=== PATIENT | male | born 1955 | race Caucasian/White ===

== ENCOUNTER 2016-09-24 18:33 | Emergency (ER) | payer OTHER ==
[2016-09-24 21:04] VITALS: BP 125/84
--- NOTE | 2016-09-24 21:19 | UC ---
Lower Extremity/Ankle HPI - HPI Summary HPI Summary: 61 yo male injuried right 2nd toe when he fell mod pain with wt bearing - History of Current Complaint Chief Complaint: UCLowerExtremity Stated Complaint: TOE INJURY Time Seen by Provider: 09/24/16 21:18 Hx Obtained From: Patient Onset/Duration: Sudden Onset Severity Initially: Moderate Severity Currently: Mild Pain Intensity: 4 Pain Scale Used: 0-10 Numeric Aggravating Factor(s): Standing, Ambulation Alleviating Factor(s): Rest, Elevation Able to Bear Weight: Yes - Allergies/Home Medications Allergies/Adverse Reactions: Allergies Allergy/AdvReac Type Severity Reaction Status Date / Time Meperidine [From Demerol HCl] Allergy See Comment Verified 04/05/15 08:40 Peanuts Allergy Coughing Uncoded 04/05/15 08:40 PMH/Surg Hx/FS Hx/Imm Hx Previously Healthy: Yes Endocrine History Of: Denies: Diabetes, Thyroid Disease, Hyperthyroidism, Hypothyroidism Cardiovascular History Of: Denies: Cardiac Disorders, Hypertension Respiratory History Of: Denies: COPD, Asthma GI/ History Of: Denies: Ulcer Neurological History Of: Denies: TIA, Seizures Psychological History Of: Denies: Anxiety, Depression - Surgical History Surgical History: Yes Surgery Procedure, Year, and Place: L bicep tendon repair - Family History Known Family History: Positive: Hypertension - Social History Alcohol Use: Daily Alcohol Amount: red winw daily 5 oz Substance Use Type: None Smoking Status (MU): Never Smoked Tobacco Review of Systems Constitutional: Negative Skin: Bruising Eyes: Negative ENT: Negative Respiratory: Negative Cardiovascular: Negative Gastrointestinal: Negative Genitourinary: Negative Motor: Negative Neurovascular: Negative Musculoskeletal: Arthralgia Neurological: Negative Psychological: Anxious All Other Systems Reviewed And Are Negative: Yes Physical Exam Triage Information Reviewed: Yes Appearance: Well-Appearing, No Pain Distress, Well-Nourished Vital Signs: Initial Vital Signs Temp 98.2 F 09/24/16 20:55 Pulse 74 09/24/16 20:55 Resp 18 09/24/16 20:55 BP 125/84 09/24/16 20:55 Pulse Ox 97 09/24/16 20:55 Vital Signs Reviewed: Yes Eyes: Positive: Conjunctiva Clear ENT: Positive: Hearing grossly normal. Negative: Nasal congestion, Nasal drainage, Trismus, Muffled/hoarse voice Neck: Positive: Supple Respiratory: Positive: Lungs clear, Normal breath sounds, No respiratory distress, No accessory muscle use Cardiovascular: Positive: RRR, No Murmur Musculoskeletal: Positive: Other: - see image Neurological: Positive: Alert Psychological Exam: Normal Skin Exam: Normal Lower Extremity Course/Dx - Differential Dx/Diagnosis Provider Diagnoses: right second toe contusion Discharge - Discharge Plan Condition: Stable Disposition: HOME Patient Education Materials: Contusion in Adults (ED) Referrals: Manjinder Clifford MD [Primary Care Provider] - If Needed Additional Instructions: tylenol or advil for pain recheck if not better in a couple of weeks Images Feet (Multiple View): 1 - swollen/ecchymotic
--- NOTE | 2016-09-24 22:00 | RAD ---
INDICATION: Right second toe injury COMPARISON: None TECHNIQUE: AP, lateral, and oblique views were obtained. FINDINGS: The bony structures, joint spaces, and soft tissues are normal for age. IMPRESSION: NO ACUTE FRACTURE.
== END 2016-09-24 22:13 | disposition home or self-care (01) ==
LOC: UCEAST 18:33
DX: S90.121A Contusion of right lesser toe(s) without damage to nail, initial encounter (principal); W19.XXXA Unspecified fall, initial encounter; Y92.9 Unspecified place or not applicable
CPT/HCPCS: 99211; G0463

== ENCOUNTER 2017-12-29 13:20 | Emergency (ER) | payer OTHER ==
--- OUTSIDE RECORDS SUMMARY | 2017-12-29 13:26 | XMS REPORT ---
:1955 External Reference #:[id number] Author Organization [employer] Address [address] [place] [address] Phone [phone] Care Team Providers Name Role Phone Octavia Ramirez MD Primary Care Physician Unavailable Payers Type Date Identification Numbers Payment Provider Subscriber Commercial Policy Number: [id number] [employer] Ppo/Pos/Epo/Nap [employer] Number: [id number] [id number] PayID: [id number] [place] [address] Problems Date Description Provider Status Onset: Seasonal allergy Active Onset: Temporomandibular joint disorder Active Onset: H/O: migraine Active Onset: H/O: depression Active Onset: Spasm Active Note: muscle - left Onset: Otitis Active Onset: 10/29/2015 Nuclear senile cataract Amanda Fernandez O.D. 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 Social History Type Date Description Comments Marital Status Legal Status: Occupation Professor - [employer] Work Status Full-Time Employment ETOH Use Occasionally consumes alcohol Smoking Patient has never smoked Recreational Drug Use Denies Drug Use Daily Caffeine Consumes on average 1 cup of regular coffee per day Allergies, Adverse Reactions, Alerts Date Description Reaction Status Severity Comments 10/19/2015 Demerol active 10/19/2015 Peanut active 11/30/2017 Seasonal active 11/30/2017 Environmental active Medications Medication Date Status Form Strength Qnty SIG Indications Ordering Provider Nancie-D 12 Active Tablets ER 60-120mg Unknown Hour Allergy& 000 12HR Congestion Glucosamine Active Capsules Unknown Chondroitin 000 Complex Flonase Active Suspension 50mcg/Act as Unknown Allergy Relief 000 needed Vitamin B-12 Active Tablets 100mcg twice a Unknown 000 week Multi Vitamin Hx Tablets Unknown Daily 000 - 017 [place] 3 Hx Capsules 1000mg 1 by Unknown 000 - mouth every 017 day Medications Administered in Office Medication Date Status Form Strength Qnty SIG Indications Ordering Provider Crizal Administered Injection [place] 3 Charly Horvath Results Description No Information Procedures Date CPT Code Description Status 11/30/2016 14977 Determination Of Refractive State Completed 11/30/2016 42600 Est Patient Comprehensive Exam Completed 01/06/2016 519 Eyeglass Hay Farmer Completed 11/16/2015 601 [place] Completed 11/01/2015 603 Eyeglass/CL Case Completed 10/30/2015 601 [place] Completed 10/29/2015 06759 Determination Of Refractive State Completed 10/29/2015 36041 Est Patient Comprehensive Exam Completed 12/14/2014 519 Eyeglass Hay Farmer Completed 10/19/2011 519 Recheck Completed 09/27/2011 03286 Determination Of Refractive State Completed 09/27/2011 77033 Est Patient Comprehensive Exam Completed 07/30/2010 17656 Est Patient Comprehensive Exam Completed 06/15/2009 64246 Determination Of Refractive State Completed 07/21/2008 07211 Determination Of Refractive State Completed 07/21/2008 69633 Est Patient Comprehensive Exam Completed 01/13/2004 02887 Determination Of Refractive State Completed 01/13/2004 72309 Est Patient Comprehensive Exam Completed 10/17/2002 113 Crizal Completed Encounters Type Date Location Provider CPT E/M Dx Office Visit 09/28/2010 3:00p Bulmaro Marina MD, Marcial oByd M.D. [id number] 379.21 pc Plan of Care 11/30/2017 - Amanda Fernandez O.D.[id number] Combined forms of age-related cataract, bilateralComments:Smoking can increase the risk of developing or worsening any eye related disease, as well as affect your overall health. If you are a smoker, we strongly recommend that you quit.If you are not a smoker, we strongly recommend that you do not start. You have been diagnosed with cataracts. If you are happy with your vision as it is now, then we will see you at your next scheduled appointment. If you feel like your vision is getting worse before your scheduled appointment, please call Lydia Ramirez at .Follow up:1 Year Follow Up You can expect to have your eyes dilated at your next visit. If Dr. Fernandez orders any additional testing, it may require extra time. We recommend that you bring sunglasses, as dilation drops often make you light sensitive until they wear off. We always recommend you bring someone to drive you home if you are uncomfortable driving with your eyes dilated. If you have any questions before your next visit, feel free to call our office at .
[2017-12-29 13:28] VITALS: BP 113/72
--- NOTE | 2017-12-29 13:52 | RAD ---
Indication: Crush injury distal phalanx region RIGHT fourth finger. Pain and swelling. Potential remote fracture. Comparison: October 08, 2007 Technique: 3 views RIGHT fourth finger. REPORT AND IMPRESSION: #. Mild fusiform soft tissue swelling. No subcutaneous emphysema or conspicuous foreign body. #. Negative for acute fracture or malalignment. #. Healed intra-articular fracture at the dorsal base of the distal phalanx.
--- NOTE | 2017-12-29 14:38 | UC ---
Hand/Wrist HPI - HPI Summary HPI Summary: Shut right fourth finger in a door yesterday---continues to ooze blood - History Of Current Complaint Chief Complaint: UCUpperExtremity Stated Complaint: R FINGER INJURY Time Seen by Provider: 12/29/17 13:22 Hx Obtained From: Patient ?: No Mechanism Of Injury: crush Onset/Duration: Sudden Onset, Lasting Days - 1, Still Present Pain Intensity: 2 Pain Scale Used: 0-10 Numeric Character Of Pain: Aching, Throbbing Alleviating Factor(s): Nothing Associated Signs And Symptoms: Positive: Bruising Related History: Dominant Hand Right - Allergies/Home Medications Allergies/Adverse Reactions: Allergies Allergy/AdvReac Type Severity Reaction Status Date / Time lavender (Lavandula Allergy Unknown Verified 12/29/17 13:29 angustifolia) Reaction Details meperidine [From Demerol] Allergy See Comment Verified 12/29/17 13:29 GRASS Allergy See Comment Uncoded 12/29/17 13:29 Peanuts Allergy Coughing Uncoded 12/29/17 13:29 Home Medications: Home Medications Cyanocobalamin (Vitamin B-12) [Vitamin B-12] 1,000 mcg PO 12/29/17 [History] Fexofenadine (NF) [Nancie (NF)] 60 mg PO 12/29/17 [History] Glucosam/Chondr/Collagn/Hyalur [Glucosamine & Chondroitin Cap] 1 cap PO [History] PMH/Surg Hx/FS Hx/Imm Hx Previously Healthy: No - CLL in remission - Surgical History Surgical History: Yes Surgery Procedure, Year, and Place: L bicep tendon repair - Family History Known Family History: Positive: Hypertension - Social History Occupation: Employed Full-time Lives: With Family Alcohol Use: Occasionally Alcohol Amount: red winw daily 5 oz Substance Use Type: None Smoking Status (MU): Never Smoked Tobacco - Immunization History Hx Tetanus, Diphtheria Vaccination: Yes Vaccination Up to Date: Yes Review of Systems Constitutional: Negative Skin: Negative, Other - bleeding around nail right 4th finger Eyes: Negative ENT: Negative Respiratory: Negative Cardiovascular: Negative Gastrointestinal: Negative Genitourinary: Negative Motor: Negative Neurovascular: Negative Musculoskeletal: Arthralgia - distal right 4th finger Neurological: Negative Psychological: Negative Is Patient Immunocompromised?: No All Other Systems Reviewed And Are Negative: Yes Physical Exam Triage Information Reviewed: Yes Appearance: Well-Appearing, No Pain Distress, Well-Nourished Vital Signs: Initial Vital Signs Temp 97.9 F 12/29/17 13:24 Pulse 79 12/29/17 13:24 Resp 18 12/29/17 13:24 BP 113/72 12/29/17 13:24 Pulse Ox 100 12/29/17 13:24 Vital Signs Reviewed: Yes Eye Exam: Normal Eyes: Positive: Conjunctiva Clear ENT Exam: Normal ENT: Positive: Normal ENT inspection, Hearing grossly normal. Negative: Trismus , Muffled voice, Hoarse voice Dental Exam: Normal Neck exam: Normal Neck: Positive: Supple, Nontender Respiratory Exam: Normal Respiratory: Positive: Chest non-tender, No respiratory distress, No accessory muscle use Cardiovascular Exam: Normal Cardiovascular: Positive: RRR, Pulses Normal, Brisk Capillary Refill Musculoskeletal Exam: Other Musculoskeletal: Positive: Strength Intact, ROM Intact, Edema @ - right 4th distal finger Neurological Exam: Normal Neurological: Positive: Alert, Fatigued Psychological Exam: Normal Skin Exam: Normal Skin: Positive: Other - nail above nail bed Diagnostics - Radiology No standard instances Xray Interpretation: No Acute Changes Radiology Interpretation Completed By: ED Physician, Radiologist - Patient Name : WILLEM ARELLANO Medical Record#: [id number] Ordering Physician: Nikia Scott NP Acct.#: [id number] : 1955 Age: 62 Sex: M Location: [facility] Exam Date: 12/29/17 1326 ADM Status: REG ER Order Information: FINGER RIGHT RING Accession Number: [id number] CPT: 82138 Indication: Crush injury distal phalanx region RIGHT fourth finger. Pain and swelling. Potential remote fracture. Comparison: October 08, 2007 Technique: 3 views RIGHT fourth finger. REPORT AND IMPRESSION: #. Mild fusiform soft tissue swelling. No subcutaneous emphysema or conspicuous foreign body. #. Negative for acute fracture or malalignment. #. Healed intra-articular fracture at the dorsal base of the distal phalanx. <Electronically signed by Armin Aviles MD in OV> 12/29/17 1349 Dictated By: Armin Aviles MD Dictated Date/Time: 12/29/17 1349 Transcribed Date/Time: 12/29/17 1346 Copy to: CC:Ash Concepcion MD; Nikia Scott FILM RECORDIST ; Octavia Ramirez MD Imaging - [facility] Imaging - [facility] Imaging - [facility] [address] [place] [id number] [id number] [place] [id number] ph ) ph ([phone]) ph ([phone]) This report is only to be considered final once signed by the Provider(s) as displayed in the "<Electronically Signed by >" field (s). Absence of a signature indicates the report is in a draft status and still needs to be finalized. In the event this document was created by someone other than the signing Provider, the individual initiating the document will be listed in the "Entered by:" or "Dictated by:" reyes. 1 of Re-Evaluation - Re-Evaluation First Eval Change: Improved - consulted Dr. Concepcion, nail is out side of nail bed proximal nail trimedd to align and support nail bed ---wound dressed with vaseline gauze and and telfa splint applied Hand/Wrist Course/Dx - Course Course Of Treatment: keflex for 5 days, dressing and change daily follow with pcp - Differential Dx/Diagnosis Provider Diagnoses: partially avulsed right 4th finger nail and crush injury Discharge - Sign-Out/Discharge Documenting (check all that apply): Patient Departure All imaging exams completed and their final reports reviewed: Yes - Discharge Plan Condition: Stable Disposition: HOME Prescriptions: Cephalexin CAP* [Keflex CAP*] 500 mg PO QID #20 cap Patient Education Materials: Acute Wound Care (ED), Nail Avulsion (ED) Referrals: Octavia Ramirez MD [Primary Care Provider] - 4 Days - Billing Disposition and Condition Condition: STABLE Disposition: Home
== END 2017-12-29 14:52 | disposition home or self-care (01) ==
LOC: UCEAST 13:20
DX: S61.305A Unspecified open wound of left ring finger with damage to nail, initial encounter (principal); W23.0XXA Caught, crushed, jammed, or pinched between moving objects, initial encounter; Y92.9 Unspecified place or not applicable
CPT/HCPCS: 73140; 99213; G0463